=== PATIENT | male | born 1935 | race African-American/Black ===

== ENCOUNTER 2020-06-25 14:04 | Emergency (ER) | payer BC, MEDICARE ==
[~2020-06-25] VITALS: Ht 185.4 cm; Wt 100.0 kg
[~2020-06-25 14:04] MED LIST: AMLO1TAB25 PO; ASPI-986 PO; CLOP75TA4 PO; FOLI-43 PO; OLME1TAB27 PO
[2020-06-25] MEDS ORDERED: AMLODIPINE 10MG TABLET PO ONE (15:00)
[2020-06-25] MEDS ORDERED: HYDRALAZINE HCL 100MG TABLET PO ONE (16:00)
[2020-06-25 16:02] LABS: CHLORIDE 103 mEq/L (98-107)
[2020-06-25 16:06] LABS: BASOPHILS % 0.8 % (0.0-2.0); EOSINOPHILS % 3.1 % (0.0-5.0); HEMATOCRIT. 40.1 % (42.0-52.0); HEMOGLOBIN. 13.3 g/dL (14.0-18.0); LYMPHOCYTES % 34.2 % (20.0-50.0); MEAN CORPUSCULAR HEMOGLOBIN 31.6 pg (28.0-32.0); MEAN CORPUSCULAR VOLUME 95.1 fL (80.0-94.0); MEAN PLATELET VOLUME 8.8 fl (7.4-10.4); MONOCYTES % 13.2 % (2.0-8.0); NEUTROPHILS % 48.7 % (40.0-76.0); PLATELET 217 x1000/uL (130-400); RED BLOOD CELL COUNT 4.22 mill/uL (4.7-6.1); RED CELL DISTRIBUTION WIDTH 14.9 % (11.6-14.6)
[2020-06-25 16:20] LABS: CLARITY URINE CLEAR (CLEAR); COLOR URINE YELLOW (YELLOW); KETONES URINE NEGATIVE (NEGATIVE); LEUKOCYTE ESTERASE URINE NEGATIVE (NEGATIVE); NITRITE URINE NEGATIVE (NEGATIVE); OCCULT BLOOD URINE NEGATIVE (NEGATIVE); PROTEIN URINE NEGATIVE (NEGATIVE); SPECIFIC GRAVITY URINE 1.007 (1.005-1.030); UROBILINOGEN URINE 0.2 E.U./dL (0.2-1.0)
[2020-06-25 18:28] VITALS: BP 184/87
== END 2020-06-25 18:44 | disposition home or self-care (01) ==
LOC: ER 14:04
DX: I16.0 Hypertensive urgency (principal); M19.90 Unspecified osteoarthritis, unspecified site; Z88.0 Allergy status to penicillin; Z79.82 Long term (current) use of aspirin
CPT/HCPCS: 36415; 71045; 80053; 81003; 85025; 93005; 99285